=== PATIENT | male | born 1965 | race Caucasian/White ===

== ENCOUNTER 2016-10-02 21:11 | Emergency (ER) | payer MEDICAID ==
[~2016-10-02] VITALS: Ht 188 cm; Wt 86.2 kg
[2016-10-02] MEDS ORDERED: LORazepam 2MG/ML-1ML VIAL ONE (21:29)
[2016-10-02] MEDS ORDERED: LORazepam 2MG/ML-1ML VIAL IV ONE (21:45)
[2016-10-02] MEDS ORDERED: ONDANSETRON HCL 4 MG/2 ML VIAL IV ONE (22:45)
[2016-10-02] MEDS ORDERED: HYDROmorphone HCL 2 MG/ML VL IV ONE (22:45)
[2016-10-03 00:45] VITALS: BP 137/70
== END 2016-10-03 00:47 | disposition home or self-care (01) ==
LOC: EDBD 21:11 → ER 21:19
DX: S16.1XXA Strain of muscle, fascia and tendon at neck level, initial encounter (principal); S29.012A Strain of muscle and tendon of back wall of thorax, initial encounter; V49.59XA Passenger injured in collision with other motor vehicles in traffic accident, initial encounter; S39.012A Strain of muscle, fascia and tendon of lower back, initial encounter; F17.210 Nicotine dependence, cigarettes, uncomplicated; Y93.89 Activity, other specified; Y99.8 Other external cause status; Y92.488 Other paved roadways as the place of occurrence of the external cause
CPT/HCPCS: 72125; 72128; 72131; 94761; 96374; 96375; 99284; J1170; J2060; J2405

== ENCOUNTER 2019-09-14 15:03 | Emergency (ER) | payer MEDICAID ==
[~2019-09-14] VITALS: Ht 193 cm; Wt 83.9 kg
[2019-09-14 15:10] VITALS: BP 121/74
== END 2019-09-14 15:19 | disposition left against medical advice (07) ==
LOC: EDBD 15:03 → ER 15:03
DX: R07.89 Other chest pain (principal); Z53.21 Procedure and treatment not carried out due to patient leaving prior to being seen by health care provider